=== PATIENT | female | born 1950 | race Caucasian/White ===

== ENCOUNTER 2018-03-27 10:13 | Emergency (ER) | payer MEDICARE, MEDICAID ==
[~2018-03-27] VITALS: Ht 167.6 cm; Wt 92.0 kg
[~2018-03-27 10:13] MED LIST: ABILIFY; AMLO5TAB4; AMLO5TAB4 PO; AMOXICILLIN; ATENOLOL; TRAMADOL; VIC PO; [UNRECOGNIZED DRUG - OTHER]
[2018-03-27 12:20] LABS: EOSINOPHILS % 2.9 % (0.0-5.0); HEMATOCRIT. 45.6 % (36.0-48.0); HEMOGLOBIN. 15.3 g/dL (12.0-16.0); LYMPHOCYTES % 28.5 % (20.0-50.0); MEAN CORPUSCULAR HEMOGLOBIN 30.7 pg (28.0-32.0); MEAN CORPUSCULAR VOLUME 91.6 fL (81.0-99.0); MEAN PLATELET VOLUME 8.3 fl (7.4-10.4); MONOCYTES % 5.7 % (2.0-8.0); NEUTROPHILS % 61.9 % (40.0-76.0); PLATELET 254 x1000/uL (130-400); RED BLOOD CELL COUNT 4.97 mill/uL (4.2-5.4)
[2018-03-27 12:23] LABS: CHLORIDE 108 mEq/L (98-107); PROTHROMBIN TIME 10.2 sec (9.4-11.6)
[2018-03-27] MEDS ORDERED: MORPHINE SULFATE 4 MG/ML CPJ (NOT FOR IM USE) IV ONE (13:30)
[2018-03-27] MEDS ORDERED: ONDANSETRON HCL 4MG/2ML VIAL IV ONE (14:15)
[2018-03-27 16:11] LABS: CLARITY URINE CLEAR (CLEAR); COLOR URINE YELLOW (YELLOW); KETONES URINE NEGATIVE (NEGATIVE); LEUKOCYTE ESTERASE URINE NEGATIVE (NEGATIVE); NITRITE URINE NEGATIVE (NEGATIVE); OCCULT BLOOD URINE NEGATIVE (NEGATIVE); PROTEIN URINE NEGATIVE (NEGATIVE); SPECIFIC GRAVITY URINE 1.015 (1.005-1.030); UROBILINOGEN URINE 0.2 E.U./dL (0.2-1.0)
[2018-03-27 16:16] VITALS: BP 162/88
== END 2018-03-27 16:21 | disposition home or self-care (01) ==
LOC: ER 10:19 → MERGE 10:19 → ER 16:21
DX: R10.9 Unspecified abdominal pain (principal); I10 Essential (primary) hypertension; K76.0 Fatty (change of) liver, not elsewhere classified; M19.90 Unspecified osteoarthritis, unspecified site; Z90.49 Acquired absence of other specified parts of digestive tract
CPT/HCPCS: 36415; 71045; 74176; 80053; 81003; 83690; 85025; 85610; 93005; 99285

== ENCOUNTER 2020-03-30 10:27 | Emergency (ER) | payer MEDICARE, MEDICAID ==
[~2020-03-30] VITALS: Ht 165.1 cm; Wt 97.0 kg
[2020-03-30] MEDS ORDERED: IBUPROFEN 600MG TABLET PO ONE (11:00)
[2020-03-30] MEDS ORDERED: ACETAMINOPHEN 325MG TABLET PO ONE (11:00)
[2020-03-30 11:27] VITALS: BP 159/72
== END 2020-03-30 12:50 | disposition home or self-care (01) ==
LOC: ER 10:27
DX: J02.9 Acute pharyngitis, unspecified (principal); Z20.828 Contact with and (suspected) exposure to other viral communicable diseases; R51 Headache; E78.00 Pure hypercholesterolemia, unspecified; I10 Essential (primary) hypertension; Z79.899 Other long term (current) drug therapy
CPT/HCPCS: 71045; 87070; 87430; 99284; C9803; U0003